=== PATIENT | male | born 1980 | race Caucasian/White ===

== ENCOUNTER → 2017-10-16 | Outpatient (CLI) | payer MEDICAID ==
--- NOTE | 2017-10-23 18:13 | ECHOF ---
Referral Reason:R03.0 Elevated Blood Pressure MEASUREMENTS -------- HEIGHT: 175.3 cm WEIGHT: 83.9 kg BP: 140/86 RVIDd: 3.1 cm (< 3.3) IVSd: 0.9 cm (0.6 - 1.1) LVIDd: 4.3 cm (3.9 - 5.3) LVPWd: 0.9 cm (0.6 - 1.1) IVSs: 1.6 cm LVIDs: 2.0 cm LVPWs: 1.5 cm LAESV Index (A-L): 35.26 ml/m Ao Diam: 3.3 cm (2.0 - 3.7) AV Cusp: 2.2 cm (1.5 - 2.6) LA Diam: 3.4 cm (2.7 - 3.8) MV EXCURSION: 19.783 mm (> 18.000) MV EF SLOPE: 150 mm/s (70 - 150) EPSS: 0.7 cm MV E Neel: 0.78 m/s MV DecT: 162 ms MV A Neel: 0.70 m/s MV E/A Ratio: 1.12 RAP: 5.00 mmHg RVSP: 21.68 mmHg FINDINGS -------- Sinus rhythm. This was a technically good study. The left ventricular size is normal. Left ventricular wall thickness is normal. Overall left vent ricular systolic function is normal with, an EF between 55 - 60 %. The right ventricle is normal in size and function. LA is moderately dilated 34-39 ml/m2 The right atrium is normal in size. The aortic valve is trileaflet, and appears structurally normal. No aortic stenosis or regurgitation. The mitral valve is normal. There is trace mitral regurgitation. Trace tricuspid regurgitation present. Right ventricular systolic pressure is normal at < 35 mmHg. There is no evidence of pulmonary hypertension. Trace/mild (physiologic) pulmonic regurgitation. The aortic root size is normal. Normal inferior vena cava with normal inspiratory collapse consistent with estimated right atrial pre ssure of 5 mmHg. The pericardium is normal. There is no pericardial effusion. CONCLUSIONS -------- 1. Sinus rhythm. 2. This was a technically good study. 3. The left ventricular size is normal. 4. Left ventricular wall thickness is normal. 5. Overall left ventricular systolic function is normal with, an EF between 55 - 60 %. 6. LA is moderately dilated 34-39 ml/m2 7. The aortic valve is trileaflet, and appears structurally normal. No aortic stenosis or regurgitati on. 8. There is trace mitral regurgitation. 9. Trace tricuspid regurgitation present. 10. Right ventricular systolic pressure is normal at < 35 mmHg. 11. There is no evidence of pulmonary hypertension. 12. Trace/mild (physiologic) pulmonic regurgitation. 13. The aortic root size is normal. 14. There is no pericardial effusion. [employer]IST: Noah Mendosa RDCS
== END | disposition home or self-care (01) ==
LOC: RADECHMAIN 15:45
PROVIDERS: ATTEND Family Medicine
DX: R03.0 Elevated blood-pressure reading, without diagnosis of hypertension (principal); Q21.9 Congenital malformation of cardiac septum, unspecified
CPT/HCPCS: 93306

== ENCOUNTER → 2017-11-10 | Outpatient (CLI) | payer MEDICAID ==
--- NOTE | 2017-11-10 14:59 | US ---
EXAMINATION TYPE: US thyroid st tissue head/neck DATE OF EXAM: 11/10/2017 COMPARISON: NONE CLINICAL HISTORY: E21.2 Other Hyperparathyroidism...... Abnormal bloodwork GLAND SIZE: Right Lobe: 4.2 x 1.3 x 1.4 cm Overall Parenchyma: homogenous Left Lobe: 3.7 x 1.2 x 1.5 cm Overall Parenchyma: homogeneous Isthmus Thickness: 0.2 cm NODULES RIGHT: # of nodules measured on right: 0 LEFT: # of nodules measured on left: 0 ISTHMUS: # of nodules measured in the isthmus: 0 Bilateral neck scanned, no evidence of lymphadenopathy. Thyroid gland is overall lower limits of normal in size and fairly homogeneous in echotexture without evidence of suspicious nodule. No posterior extrathyroidal suspicious soft tissue nodules are identi fied to suggest parathyroid adenoma. IMPRESSION: As above, unremarkable study.
== END | disposition home or self-care (01) ==
LOC: RADUSWWP 14:12
PROVIDERS: ATTEND Family Medicine
DX: E21.2 Other hyperparathyroidism (principal); E02 Subclinical iodine-deficiency hypothyroidism
CPT/HCPCS: 76536

== ENCOUNTER → 2020-09-25 | Outpatient (CLI) | payer OTHER ==
--- NOTE | 2020-09-25 14:14 | US ---
EXAMINATION TYPE: US abdomen complete DATE OF EXAM: 09/25/2020 COMPARISON: NONE CLINICAL HISTORY: R94.5 Abnormal liver function. EXAM MEASUREMENTS: Liver Length: 21.0 cm Gallbladder Wall: 0.2 cm CBD: 0.3 cm Spleen: 9.7 cm Right Kidney: 10.9 x 4.9 x 4.5 cm Left Kidney: 11.5 x 4.9 x 4.3 cm Pancreas: visualized portions wnl, limited by overlying midline bowel gas Liver: enlarged, mildly heterogeneous, increased attenuation, decreased visualization of vessels sug gestive of fatty infiltrate Gallbladder: wnl Evidence for sonographic Pruitt's sign: no CBD: visualized portions wnl, limited by overlying bowel gas Spleen: visualized portions wnl, limited by overlying bowel gas Right Kidney: wnl Left Kidney: wnl Upper IVC: wnl Abd Aorta: wnl There is evidence of hepatomegaly and underlying hepatic steatosis. There is a focal fatty sparing león ggested. The intrahepatic portion of the IVC and proximal abdominal aorta are within normal limits. There is no evidence of cholelithiasis. Common bile duct is unremarkable. The visualized portions o f the pancreas are homogenous. The spleen is unremarkable. Kidneys are symmetric and free of hydron ephrosis. No renal lesions are seen. IMPRESSION: There is evidence of hepatomegaly and underlying hepatic steatosis. There is a focal fatty sparing león ggested
== END | disposition home or self-care (01) ==
LOC: RADUSWWP 12:15
PROVIDERS: ATTEND Family Medicine
DX: K76.0 Fatty (change of) liver, not elsewhere classified (principal); R16.0 Hepatomegaly, not elsewhere classified
CPT/HCPCS: 76700

== ENCOUNTER → 2021-05-22 | Outpatient (CLI) | payer OTHER ==
--- NOTE | 2021-05-22 12:51 | MR ---
MR liver with and without contrast HISTORY: R74.01 R16.0 Multiplanar multisequence and postcontrast images obtained through the liver following 7.5 cc gadolin ium based IV. Correlation ultrasound abdomen 09/25/2020 The liver is enlarged expanded greater than 20 cm. Liver shows drop in signal on out of phase imaging consistent with hepatic steatosis. There is no evident liver mass, no dilated intra or extrahepatic biliary duct. No abnormal enhancement following contrast administration. Hepatic veins, inferior vena cava, portal vein show normal enhancement Lung bases show no pleural effusion. The pancreas, adrenal glands, kidneys, spleen, gallbladder are w ithin normal limits, small cortical cyst noted at the lower pole the right kidney, kidneys excrete co ntrast symmetrically. Aorta shows normal caliber. There is no retroperitoneal adenopathy or ascites. Stomach and visualized bowel are within normal limits. Bone marrow signal is maintained. IMPRESSION: Findings consistent with hepatic steatosis. There is hepatomegaly.
== END | disposition home or self-care (01) ==
LOC: RADMRIMAIN 09:17
PROVIDERS: ATTEND Nurse Practitioner Family
DX: R16.0 Hepatomegaly, not elsewhere classified (principal)
CPT/HCPCS: 74183; A9585